=== PATIENT | female | born 1975 | race Caucasian/White ===

== ENCOUNTER → 2017-07-12 | Outpatient (CLI) | payer OTHER, MEDICAID ==
[2017-07-12 14:05] LABS: BILIRUBIN,URINE NEGATIVE (NEGATIVE); BLOOD/HEMOGLOBIN,URINE NEGATIVE (NEGATIVE); GLUCOSE, URINE NEGATIVE (NEGATIVE); KETONES,URINE NEGATIVE (NEGATIVE); LEUKOCYTE ESTERASE ,URINE 1+ (NEGATIVE); NITRITES,URINE NEGATIVE (NEGATIVE); PH,URINE 6.5 (5.0 - 8.0); PROTEIN,URINE 1+ (NEGATIVE); UROBILINOGEN,URINE 1+ (NORMAL)
[2017-07-12 14:14] LABS: BLOOD UREA NITROGEN 8 mg/dL (7-18); CALCIUM 8.5 mg/dL (8.5-10.1); CARBON DIOXIDE 27.1 mmol/L (21-32); CHLORIDE 104 mmol/L (98-107); CREATININE 0.85 mg/dL (0.55-1.02); SODIUM 140 mmol/L (136-145); eGFR BLACK RACES > 60 (>60); eGFR NON BLACK RACES > 60 (>60)
[2017-07-12 14:17] LABS: SERUM PREGNANCY TEST, QUAL NEGATIVE <10 mIU/mL
[2017-07-12 14:18] LABS: BASOPHILS # (AUTO) 0.1 X10^3/uL (0.0-0.1); BASOPHILS % (AUTO) 0.6 % (0.2-1.0); EOSINOPHILS # (AUTO) 0.3 x10^3/uL (0.0-0.2); EOSINOPHILS % (AUTO) 2.1 % (0.9-2.9); HEMATOCRIT 36.3 % (36.0-47.0); LYMPHOCYTES # (AUTO) 2.9 X10^3/uL (1.3-2.9); LYMPHOCYTES % (AUTO) 23.2 % (21.0-51.0); MEAN CORPUSCULAR HEMOGLOBIN 25.5 pg (27.0-34.0); MEAN CORPUSCULAR HGB CONC 33.2 g/dL (33.0-35.0); MEAN PLATELET VOLUME 7.1 fL (7.4-11.0); MONOCYTES # (AUTO) 0.6 x10^3/uL (0.3-0.8); MONOCYTES % (AUTO) 4.6 % (0.0-13.0); NEUTROPHILS # (AUTO) 8.7 x10^3/uL (2.2-4.8); NEUTROPHILS % (AUTO) 69.5 % (42.0-75.0); PLATELET COUNT 373 X10^3/uL (150.0-450.0); RED BLOOD COUNT 4.71 X10^6/uL (3.5-5.4); RED CELL DISTRIBUTION WIDTH 15.2 % (11.6-16.5); WHITE BLOOD COUNT 12.5 X10^3/uL (3.6-10.0)
[2017-07-12 14:38] LABS: PLATELET MORPHOLOGY COMMENT NORMAL (NORMAL)
[2017-07-12 14:39] LABS: APPEARANCE,URINE CLEAR (CLEAR); COLOR,URINE YELLOW (YELLOW); POIKILOCYTOSIS SLIGHT
[2017-07-12 14:40] LABS: AMORPHOUS SEDIMENT,UR TRACE /HPF (NEGATIVE); BACTERIA,URINE TRACE /HPF (NEGATIVE); HYALINE CASTS, URINE RARE /LPF (NEGATIVE); MUCUS,URINE MODERATE /HPF (NEGATIVE); RBC,URINE 0-2 /HPF (NONE SEEN); SQUAMOUS EPITHELIAL CELL,UR MANY /HPF (NEGATIVE)
== END ==
LOC: LAB 13:32
PROVIDERS: ATTEND Specialist
DX: Z01.818 Encounter for other preprocedural examination (principal); N92.5 Other specified irregular menstruation; N94.6 Dysmenorrhea, unspecified; R10.2 Pelvic and perineal pain; D25.9 Leiomyoma of uterus, unspecified
CPT/HCPCS: 36415; 80048; 81001; 84703; 85025; 85610; 86850; 86900; 86901

== ENCOUNTER 2017-07-14 06:19 | Day surgery (SDC) | payer OTHER, MEDICAID ==
[2017-07-14] MEDS ORDERED: D5 1/2 NS 1000 ML 1,000 ML IV ONE (06:20)
[2017-07-14] MEDS ORDERED: D5 1/2 NS 1000 ML 1,000 ML IV SCH ×2 (06:28→10:00)
[2017-07-14] MEDS ORDERED: ANCEF VIAL 1 GM 1 GM in NS 50 ML IV + SPIKE MINIBAG* 50 ML IV PRN (06:28)
[2017-07-14] MEDS ORDERED: VASOSTRICT INJ 20 UNITS VIAL ONE (06:35)
[2017-07-14] MEDS ORDERED: ANCEF 1 GM IV PREMIX* 1 GM/50 ML BAG IV ONE (06:53)
[2017-07-14] MEDS ORDERED: FENTANYL INJ 100 mcg ONE (07:10)
[2017-07-14] MEDS ORDERED: DURAMORPH ONE (07:11)
[2017-07-14] MEDS ORDERED: NS IRRIGATION 1000 ML 1,000 ML IR ONE (08:55)
[2017-07-14] MEDS ORDERED: DILAUDID INJ IVP PRN (09:05)
[2017-07-14] MEDS ORDERED: ZOFRAN INJ 4 MG VIAL IVP PRN ×3 (09:05→09:24)
[2017-07-14] MEDS ORDERED: PHENERGAN INJ 25 MG IVP PRN (09:05)
[2017-07-14] MEDS ORDERED: REGLAN INJ 10 MG VIAL IVP PRN ×2 (09:05→09:24)
[2017-07-14] MEDS ORDERED: BENADRYL INJ 50 MG VIAL IVP PRN ×3 (09:05→09:24)
[2017-07-14] MEDS ORDERED: DILAUDID INJ ONE (09:07)
[2017-07-14] MEDS ORDERED: PERCOCET TAB 5/325 MG PO PRN ×2 (09:24→17:28)
[2017-07-14] MEDS ORDERED: NARCAN INJ IVP PRN (09:24)
[2017-07-14] MEDS ORDERED: TORADOL 30 MG VIAL IVP PRN ×2 (09:24)
[2017-07-14] MEDS: D5 1/2 NS 1000 ML 1,000 ML IV SCH ×2 (12:30→18:07)
[2017-07-14] MEDS ORDERED: QUELICIN (OR ANECTINE) ONE (14:55)
[2017-07-14] MEDS ORDERED: NORCURON INJ 10 MG VIAL ONE (14:55)
[2017-07-14] MEDS ORDERED: DIPRIVAN VIAL ONE (14:55)
[2017-07-14] MEDS ORDERED: ROBINUL ONE (14:55)
[2017-07-14] MEDS ORDERED: SUPRANE IN ONE (14:55)
[2017-07-14] MEDS ORDERED: XYLOCAINE 2 % (PLAIN) ONE (14:55)
[2017-07-14] MEDS ORDERED: VERSED ONE (14:55)
[2017-07-14] MEDS ORDERED: TORADOL 30 MG VIAL ONE (14:55)
[2017-07-14] MEDS ORDERED: NEOSTIGMINE INJ ONE (14:55)
[2017-07-14] MEDS ORDERED: ZOFRAN INJ 4 MG VIAL ONE (14:55)
[2017-07-15] MEDS: D5 1/2 NS 1000 ML 1,000 ML IV SCH ×2 (00:41→07:23)
[2017-07-15 06:07] LABS: BASOPHILS % (AUTO) 0.2 % (0.2-1.0); EOSINOPHILS # (AUTO) 0.1 x10^3/uL (0.0-0.2); EOSINOPHILS % (AUTO) 0.5 % (0.9-2.9); HEMATOCRIT 27.1 % (36.0-47.0); LYMPHOCYTES # (AUTO) 2.5 X10^3/uL (1.3-2.9); LYMPHOCYTES % (AUTO) 14.5 % (21.0-51.0); MEAN CORPUSCULAR HEMOGLOBIN 25.6 pg (27.0-34.0); MEAN CORPUSCULAR HGB CONC 33.2 g/dL (33.0-35.0); MEAN CORPUSCULAR VOLUME 77.1 fL (80.0-100.0); MEAN PLATELET VOLUME 7.1 fL (7.4-11.0); MONOCYTES # (AUTO) 1.2 x10^3/uL (0.3-0.8); NEUTROPHILS # (AUTO) 13.6 x10^3/uL (2.2-4.8); NEUTROPHILS % (AUTO) 77.8 % (42.0-75.0); PLATELET COUNT 309 X10^3/uL (150.0-450.0); RED BLOOD COUNT 3.52 X10^6/uL (3.5-5.4); RED CELL DISTRIBUTION WIDTH 15.2 % (11.6-16.5); WHITE BLOOD COUNT 17.5 X10^3/uL (3.6-10.0)
[2017-07-15 06:36] LABS: BLOOD UREA NITROGEN 9 mg/dL (7-18); CALCIUM 8.1 mg/dL (8.5-10.1); CARBON DIOXIDE 24.2 mmol/L (21-32); CHLORIDE 106 mmol/L (98-107); CREATININE 0.77 mg/dL (0.55-1.02); SODIUM 140 mmol/L (136-145); eGFR BLACK RACES > 60 (>60); eGFR NON BLACK RACES > 60 (>60)
[2017-07-15 06:37] LABS: HYPOCHROMASIA SLIGHT; PLATELET MORPHOLOGY COMMENT NORMAL (NORMAL)
[2017-07-15 06:38] LABS: MICROCYTOSIS SLIGHT
[2017-07-15 10:29] VITALS: BP 89/52
== END 2017-07-15 11:10 | disposition home or self-care (01) ==
LOC: SURG1 06:19 → MED/SURG 09:24
PROVIDERS: ADMIT Specialist; ATTEND Specialist
PROC: 0UT77ZZ Resection of Bilateral Fallopian Tubes, Via Natural or Artificial Opening (ICD-10-PCS; 2017-07-14)
PROC: 0UT27ZZ Resection of Bilateral Ovaries, Via Natural or Artificial Opening (ICD-10-PCS; 2017-07-14)
PROC: 0UT97ZZ Resection of Uterus, Via Natural or Artificial Opening (ICD-10-PCS; principal; 2017-07-14 07:30)
DX: N92.0 Excessive and frequent menstruation with regular cycle (principal); N94.6 Dysmenorrhea, unspecified; D25.1 Intramural leiomyoma of uterus; R10.2 Pelvic and perineal pain; K21.9 Gastro-esophageal reflux disease without esophagitis; D50.8 Other iron deficiency anemias
CPT/HCPCS: 36415; 80048; 85025; A4216; A4222; G0378; J0330; J0690; J1170; J1885; J2001; J2250; J2405; J2710; J2765; J3010; J3490; J7042